=== PATIENT | female | born 1965 | race Caucasian/White ===

== ENCOUNTER → 2016-08-30 | Outpatient (CLI) | payer BC ==
[~2016-08-30] MED LIST: CITA20TA7 PO; ESTR1TAB24 PO; HYDR200T PO; HYOS0.1283 SL; VNL75T
--- NOTE | 2016-08-30 20:06 | Diagnostic Imaging Report ---
INDICATION: Two-month history of cough. History of tobacco use. TECHNIQUE: Two view chest at 4:44 PM CORRELATION STUDY: 10/02/2007 FINDINGS: There is mild pectus excavatum deformity which results in slight distortion of the right heart border. Heart size, mediastinum and vasculature are overall within normal limits. The lungs are clear with no consolidating infiltrate. There is no significant pleural effusion or pneumothorax. Mild S-type curvature of the thoracic spine. IMPRESSION: 1. Negative for acute abnormality of the chest. If this persists given no identifiable source, consideration for CT imaging would be recommended. Dictated by: Dictated on workstation # [id number]
== END ==
LOC: RAD 16:20
PROVIDERS: ATTEND Internal Medicine
DX: R05 Cough (principal); F17.210 Nicotine dependence, cigarettes, uncomplicated
CPT/HCPCS: 71020

== ENCOUNTER → 2017-03-01 | Outpatient (CLI) | payer BC ==
--- NOTE | 2017-03-04 13:03 | Diagnostic Imaging Report ---
Bilateral screening mammogram 2D views with tomosynthesis The current study was also evaluated with a Computer Aided Detection (CAD) system. INDICATION: Screening. No current complaints stated on the questionnaire. COMPARISON: 09/13/15 FINDINGS: The breasts are composed of heterogeneously dense parenchyma which may decrease mammographic sensitivity. Punctate benign-appearing calcifications are seen. There is an intramammary lymph node seen in the axillary tail of the left breast and other bilateral symmetric axillary lymph nodes with preserved fatty amirah suggestive of benign etiology. Allowing for technique and positional differences, no suspicious change is seen. IMPRESSION: No significant change. ACR BI-RADS Category 2: Benign findings. Result letter will be mailed to the patient. Note: At least 10% of breast cancer is not imaged by mammography. Dictated by: Dictated on workstation # [id number]
== END ==
LOC: RAD 13:25
PROVIDERS: ATTEND Internal Medicine
DX: Z12.31 Encounter for screening mammogram for malignant neoplasm of breast (principal)
CPT/HCPCS: 77067

== ENCOUNTER → 2017-09-26 | Outpatient (CLI) | payer BC ==
[~2017-09-26] MED LIST changes: -CITA20TA7 PO; +CITA20TA9 PO; -HYDR200T PO; +HYDR200T78 PO
--- NOTE | 2017-09-26 13:48 | Diagnostic Imaging Report ---
INDICATION: Cough, tobacco use. PA and lateral chest. FINDINGS: Heart size and pulmonary vascularity are normal. Lungs are clear. There are no effusions or pneumothoraces. IMPRESSION: Negative chest. Dictated by: Dictated on workstation # [id number]
== END ==
LOC: RAD 11:39
PROVIDERS: ATTEND Nurse Practitioner Family
DX: R05 Cough (principal); R53.83 Other fatigue; Z72.0 Tobacco use
CPT/HCPCS: 71046

== ENCOUNTER → 2017-10-09 | Outpatient (CLI) | payer BC ==
[~2017-10-09] MED LIST changes: +RT-ALBUTEROL SULF 2.5 MG/3 ML PRE-MIX VIAL INH ONE; +RT-ALBUTEROL SULF 2.5 MG/3 ML PRE-MIX VIAL ONE
== END ==
LOC: RT 08:01
PROVIDERS: ATTEND Nurse Practitioner Family
DX: R05 Cough (principal); R53.83 Other fatigue; Z72.0 Tobacco use
CPT/HCPCS: 94060; 94726; 94729

== ENCOUNTER 2017-10-16 10:00 | Outpatient (CLI) | payer BC ==
[~2017-10-16 10:00] MED LIST changes: -RT-ALBUTEROL SULF 2.5 MG/3 ML PRE-MIX VIAL INH ONE; -RT-ALBUTEROL SULF 2.5 MG/3 ML PRE-MIX VIAL ONE
== END 2017-10-16 10:20 | disposition home or self-care (01) ==
LOC: SLEEP 10:00
PROVIDERS: ATTEND Nurse Practitioner Family
DX: G47.10 Hypersomnia, unspecified (principal); G47.50 Parasomnia, unspecified

== ENCOUNTER → 2018-05-29 | Outpatient (CLI) | payer BC ==
--- NOTE | 2018-05-29 08:58 | Diagnostic Imaging Report ---
PROCEDURE: US Gallbladder. TECHNIQUE: Multiple real-time grayscale images were obtained over the right upper quadrant in various projections. INDICATION: Right upper quadrant pain. FINDINGS: The liver parenchyma is homogeneous with normal echotexture. Gallbladder is clear with no stones or wall thickening. The common duct is not dilated. Pancreas is unremarkable. Right kidney measures 9.7 cm in length and appears normal. IMPRESSION: Negative gallbladder sonogram. Dictated by: Dictated on workstation # [id number]
--- NOTE | 2018-05-29 20:03 | Diagnostic Imaging Report ---
INDICATION: Routine screening. Comparison is made with prior mammogram from 03/01/2017 and 09/13/2015. 2-D and 3-D bilateral screening mammography was performed with a Computer Aided Detection (CAD) system. FINDINGS: Both breasts show scattered fibronodular tissue. The parenchymal pattern is stable. No dominant mass or malignant appearing microcalcifications are seen. The axillae are unremarkable. IMPRESSION: No mammographic features suspicious for malignancy are identified. ACR BI-RADS Category 1: Negative. Result letter will be mailed to the patient. Note: At least 10% of breast cancer is not imaged by mammography. Dictated by: Dictated on workstation # [id number]
== END ==
LOC: RAD 07:52
PROVIDERS: ATTEND Obstetrics & Gynecology
DX: Z12.31 Encounter for screening mammogram for malignant neoplasm of breast (principal); R10.11 Right upper quadrant pain
CPT/HCPCS: 76705; 77067

== ENCOUNTER → 2019-06-04 | Outpatient (CLI) | payer BC ==
--- NOTE | 2019-06-04 09:54 | Diagnostic Imaging Report ---
INDICATION: Routine screening. Comparison is made with prior mammogram 05/29/2018 and 03/01/2017. 2-D and 3-D bilateral screening mammography was performed with CAD. Scattered fibroglandular densities are identified bilaterally. Circumscribed nodule in the upper left breast is stable. No new mass or malignant-appearing microcalcifications are seen. Axillae are unremarkable. IMPRESSION: BI-RADS Category 2 No mammographic features suspicious for malignancy are identified. ACR BI-RADS Category 2: Benign findings. Result letter will be mailed to the patient. Note: At least 10% of breast cancer is not imaged by mammography. Dictated by: Dictated on workstation # [id number]
== END ==
LOC: RAD 07:51
PROVIDERS: ATTEND Obstetrics & Gynecology
DX: Z12.31 Encounter for screening mammogram for malignant neoplasm of breast (principal)
CPT/HCPCS: 77067

== ENCOUNTER 2020-08-31 05:29 | Outpatient (RCR) | payer BC ==
[~2020-08-31] VITALS: Ht 162.6 cm; Wt 77.2 kg
[~2020-08-31 05:29] MED LIST changes: +CETI10TA17 PO; +CHOL400T29 PO; +FLUT16SP22 NS
== END 2020-08-31 13:06 | disposition home or self-care (01) ==
LOC: PREOP 05:29
PROVIDERS: ATTEND Internal Medicine
DX: Z01.812 Encounter for preprocedural laboratory examination (principal); Z20.822 Contact with and (suspected) exposure to COVID-19
CPT/HCPCS: 87635

== ENCOUNTER 2020-09-02 09:32 | Day surgery (SDC) | payer BC ==
--- NOTE | 2020-08-29 08:54 | HISTORY AND PHYSICAL ---
DATE OF SERVICE: EGD HISTORY AND PHYSICAL HISTORY OF PRESENT ILLNESS: The patient is a 55-year-old white female seen for followup of rheumatoid arthritis and IBS-D. She reported multiple complaints, one of which was dysphagia pointing to the mid precordial area predominantly to solids. When she has the sensation, she will drink liquid and feels that the food bolus passes with mild discomfort. It makes her feel quite agitated for a while, although she denies severe chest pain. Chronic arthralgia has been stable with minimal morning stiffness and she reports no acutely inflamed joints. She has had a low-grade right sided headache ever since her first COVID vaccination and scheduled for second one tomorrow. She cut her Plaquenil dose down to 200 mg and thought that some of her intermittent diarrhea symptoms have improved. She reports that she does feel short of breath when walking upstairs without any chest symptoms. She denies any difficulty with walking on level ground and has not been getting any regular physical activity. PHYSICAL EXAMINATION: GENERAL: Reveals a white female, a little anxious, but not in acute distress. VITAL SIGNS: Weight was down 1.6 pounds from 5 months ago to 174.8, blood pressure 122/72. HEENT: Unremarkable. NECK: Revealed no JVD, adenopathy or bruits. CHEST: Clear to auscultation. CARDIOVASCULAR: Revealed a regular rate and rhythm without murmur, S3 or S4. ABDOMEN: Soft, supple without mass or organomegaly. Mild epigastric discomfort to palpation noted. No rebound or guarding noted. No evidence for abdominal aortic aneurysm to palpation noted. Bowel sounds positive. EXTREMITIES: Reveal no cyanosis, clubbing or edema. Joint evaluation of the wrist and hands revealed no evidence for active synovitis. No erythema, warmth or swelling. Further GI review of systems, she denies any significant heartburn and reports no melena or bright red blood per rectum. She does have an intermittent sensation of bloating. ASSESSMENT AND PLAN: 1. Dysphagia to solids. For this reason, the patient is being set up for EGD evaluation. She has no past history of EGD evaluation. She has had a previous colonoscopy in 2016 for which she had an irritable bowel type response, but no evidence for neoplasia. 2. Rheumatoid arthritis, under good control on methotrexate. We discussed Plaquenil was not likely contributing to any of her symptoms and advised going back to 400 mg daily. Chemistry panel, lipid panel and CBC were unremarkable with normal sed rate of 11. 3. IBS-D, pending EGD evaluation. We will likely initiate Xifaxan 550 mg t.i.d. for 2 weeks. Job ID: [id number] DocumentID: [id number] Dictated Date: 08/25/2020 17:32:28 Rotary Engine Assembler Date: 08/25/2020 17:49:25 Dictated By: VENUS VAN MD
[~2020-09-02] VITALS: Ht 162.6 cm; Wt 77.2 kg
[2020-09-02] MEDS ORDERED: LACTATED RINGERS 1,000 ML IV STA (09:34)
[2020-09-02] MEDS ORDERED: LACTATED RINGERS 1,000 ML IV ONE (09:34)
[2020-09-02] MEDS ORDERED: HURRICAINE EXT TUBE (BENZOCAINE) ONE (09:40)
[2020-09-02] MEDS ORDERED: HURRICAINE EXT TUBE (BENZOCAINE) XX PRN (09:45)
[2020-09-02] MEDS ORDERED: LIDOCAINE JELLY 2% 6 ML SYRINGE MM PRN (09:45)
[2020-09-02] MEDS ORDERED: PROPOFOL INJECTION 50 ML IV ONE (09:51)
[2020-09-02] MEDS ORDERED: MIDAZOLAM 2 MG/2 ML (VERSED) VIAL ONE (09:51)
[2020-09-02 09:53] VITALS: BP 116/46
--- NOTE | 2020-09-02 10:03 | Pre-Op Note & Conscious Sedat ---
Pre-Operative Progress Note H&P Reviewed The H&P was reviewed, patient examined and no changes noted. Date H&P Reviewed: Sep 02, 2020 Time H&P Reviewed: 09:50 Conscious Sedation Pre-Proced ASA Score 2 For ASA 3 and 4: Consider anesthesia and medical clearance. Also, for patients with a history of failed moderate sedation consider anesthesia. Airway Lungs Heart ASA score ASA 1: a normal healthy patient ASA 2: a patient with a mild systemic disease (mid diabetes, controlled hypertension, obesity ASA 3: a patient with a severe systemic disease that limits activity (angina, COPD, prior Myocardial infarction) ASA 4: a patient with an incapacitating disease that is a constant threat to life (CHF, renal failure) ASA 5: a moribund patient not expected to survive 24 hrs. (ruptured aneurysm) ASA 6: a declared brain- patient whose organs are being harvested. For emergent operations, add the letter E after the classification Mallampati Classification Grade 2 Sedation Plan Analgesia, Amnesia, Plan communicated to team members, Discussed options with patient/fam, Discussed risks with patient/fam The patient is an appropriate candidate to undergo the planned procedure, sedation, and anesthesia. The patient immediately re-assessed prior to indication. VENUS VAN MD Sep 02, 2020 10:03
[2020-09-02 10:15] VITALS: BP 91/51
[2020-09-02 10:20] VITALS: BP 96/55
[2020-09-02 10:25] VITALS: BP 107/59
[2020-09-02 10:50] VITALS: BP 98/55
--- NOTE | 2020-09-02 10:56 | Anesthesia-General Post-Op ---
MAC Patient Condition Mental Status/LOC: Same as Preop Cardiovascular: Satisfactory Nausea/Vomiting: Absent Respiratory: Satisfactory Pain: Controlled Complications: Absent Post Op Complications Complications None Follow Up Care/Instructions Patient Instructions None needed. Anesthesiology Discharge Order Discharge Order Patient is doing well, no complaints, stable vital signs, no apparent adverse anesthesia problems. No complications reported per nursing. FER HARVEY CRNA Sep 02, 2020 10:56
[2020-09-02 11:00] VITALS: BP 98/55
--- NOTE | 2020-09-02 17:17 | OPERATIVE REPORT ---
DATE OF SERVICE: EGD SUMMARY INDICATION FOR THE PROCEDURE: Dysphagia. DESCRIPTION OF PROCEDURE: The patient was placed in the left lateral decubitus position. The endoscope was inserted into the oral cavity and under direct visualization, the esophagus was intubated. The endoscope was passed down the esophagus through the stomach and second portion of the duodenum. A careful inspection was made as the endoscope was withdrawn. FINDINGS: The posterior pharynx, true and false vocal folds, arytenoids aperture and epiglottis were unremarkable to visual inspection. Proximal and mid esophagus were unremarkable. There is a small sliding hiatal hernia with some mild erythema confined at the Z-line without evidence for erosive esophagitis. Biopsy was obtained and submitted for histopathology. The cardia and fundus of stomach were unremarkable. There are patchy areas of antral erythema present. A biopsy was obtained and submitted for Helicobacter evaluation. The pylorus, pyloric channel, duodenal bulb and second portion of duodenum were unremarkable. ASSESSMENT: Mild erythema noted at the Z line compatible with nonerosive esophagitis is present with a small sliding hiatal hernia. There are some patchy areas of antral erythema present. Biopsy was obtained and submitted for Helicobacter. Discussed with the patient that if Helicobacter is present, the first thing to do is going to treat that. If there is no evidence for Helicobacter, the patient does have IBS-D that has been refractory to several antispasmodics, so we will initiate Xifaxan 550 mg t.i.d. x2 weeks. Patient is otherwise reassured by today's findings. Job ID: [id number] DocumentID: [id number] Dictated Date: 09/02/2020 11:02:59 Linting Machine Operator Date: 09/02/2020 17:16:36 Dictated By: VENUS VAN MD [facility]
--- NOTE | 2020-09-02 18:06 | OPERATIVE REPORT ---
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 There are some small vesicles and erythematous papules noted that corresponded to the bandaging. She does report a LATEX allergy. Hydrocortisone that she has, prescription strength was recommended and p.r.n. Benadryl that she tolerates without oversedation for itching. Patient was reassured. She reports no pain and there was no pain to palpation and no induration. Expectations were discussed. Job ID: [id number] DocumentID: [id number] Dictated Date: 09/02/2020 11:50:09 Order Checker Date: 09/02/2020 18:05:43 Dictated By: VENUS VAN MD MTDD
== END 2020-09-02 11:00 | disposition home or self-care (01) ==
LOC: ENDO 09:32
PROVIDERS: ATTEND Internal Medicine
DX: K44.9 Diaphragmatic hernia without obstruction or gangrene (principal); M06.9 Rheumatoid arthritis, unspecified; Z79.899 Other long term (current) drug therapy
CPT/HCPCS: 88305

== ENCOUNTER → 2020-09-19 | Outpatient (CLI) | payer BC ==
--- NOTE | 2020-09-19 11:08 | Diagnostic Imaging Report ---
EXAMINATION: Digital mammogram bilateral screening with CAD. INDICATION: Screening. COMPARISON: This study was compared to the prior exams of 06/04/2019, 05/29/2018, and 03/01/2017. PERSONAL HISTORY: At this time, there are no current complaints. FINDINGS: The fibroglandular tissue in both breasts is heterogeneously dense. This does limit the sensitivity of this exam. Overall, there does not appear to have been any significant change when compared to the prior study. No primary or secondary sign of malignancy is noted. IMPRESSION: There is no radiographic evidence for malignancy. ACR BI-RADS Category 1: Negative. Result letter will be mailed to the patient. Note: At least 10% of breast cancer is not imaged by mammography. Dictated by: Dictated on workstation # [id number]
== END ==
LOC: RAD 08:35
PROVIDERS: ATTEND Internal Medicine
DX: Z12.31 Encounter for screening mammogram for malignant neoplasm of breast (principal)
CPT/HCPCS: 77063; 77067

== ENCOUNTER → 2022-02-12 | Outpatient (CLI) | payer BC ==
--- NOTE | 2022-02-12 10:15 | Diagnostic Imaging Report ---
INDICATION: Routine screening. COMPARISON: 09/19/2020 and 06/04/2019. TECHNIQUE: 2D and 3D bilateral screening mammography was performed with CAD. FINDINGS: Scattered fibroglandular densities are identified bilaterally. No spiculated mass or malignant-appearing microcalcifications are seen. The axillae are unremarkable. IMPRESSION: No mammographic features suspicious for malignancy are identified. ACR BI-RADS Category 1: Negative. Result letter will be mailed to the patient. Note: At least 10% of breast cancer is not imaged by mammography. Dictated by: Dictated on workstation # [id number]
== END ==
LOC: RAD 08:10
PROVIDERS: ATTEND Internal Medicine
DX: Z12.31 Encounter for screening mammogram for malignant neoplasm of breast (principal)
CPT/HCPCS: 77063; 77067

== ENCOUNTER → 2022-09-05 | Outpatient (CLI) | payer BC ==
--- NOTE | 2022-09-05 09:17 | Diagnostic Imaging Report ---
INDICATION: Palpable lump right breast. Comparison is made with prior mammogram of 02/12/2022. Unilateral right 2-D and 3-D diagnostic mammography was performed with CAD. BB markers placed at the area of palpable abnormality in the lower slightly inner right breast. There is a small nodular density just below the skin surface which may account for the palpable abnormality. The remainder of the right breast unremarkable. No malignant-appearing microcalcifications are seen. IMPRESSION: Tiny nodular density just below the skin surface at the area of palpable abnormality in the lower inner right breast. Further evaluation with ultrasound is recommended and will be performed today. ACR BI-RADS Category 0: Incomplete. (Needs additional imaging evaluation). Result letter will be mailed to the patient. Note: At least 10% of breast cancer is not imaged by mammography. BI-RADS 0 Dictated by: Dictated on workstation # [id number]
--- NOTE | 2022-09-05 09:28 | Diagnostic Imaging Report ---
INDICATION: Right breast lump. Correlation is made with diagnostic mammogram earlier same day. Sonographic interrogation area of lump in lower right breast was performed. There is a simple appearing cyst just below the skin surface at the 5 o'clock location, 1 cm from the nipple measuring 3 mm x 3 mm x 4 mm. No internal vascularity is seen. No solid masses detected. IMPRESSION: Tiny simple cyst at the area palpable abnormality right breast 5 o'clock location. The patient may return to routine annual screening mammography. Dictated by: Dictated on workstation # [id number]
== END ==
LOC: RAD 08:32
PROVIDERS: ATTEND Internal Medicine
DX: N60.01 Solitary cyst of right breast (principal)
CPT/HCPCS: 76642; 77065; G0279

== ENCOUNTER → 2023-04-18 | Outpatient (CLI) | payer BC ==
--- NOTE | 2023-04-18 09:58 | Diagnostic Imaging Report ---
INDICATION: Routine screening. COMPARISON: 02/12/2022 and 09/19/2020. TECHNIQUE: 2D and 3D bilateral screening mammography was performed with CAD. FINDINGS: Scattered fibroglandular densities are identified bilaterally. The parenchymal pattern is stable. No mass or malignant-appearing microcalcifications are seen. The axillae are unremarkable. IMPRESSION: No mammographic features suspicious for malignancy are identified. ACR BI-RADS Category 1: Negative. Result letter will be mailed to the patient. Note: At least 10% of breast cancer is not imaged by mammography. Dictated by: Dictated on workstation # [id number]
== END ==
LOC: RAD 07:36
PROVIDERS: ATTEND Internal Medicine
DX: Z12.31 Encounter for screening mammogram for malignant neoplasm of breast (principal)
CPT/HCPCS: 77063; 77067